=== PATIENT | male | born 1985 | race Caucasian/White ===

== ENCOUNTER 2022-07-04 08:10 | Outpatient (CLI) | payer OTHER, SELFPAY ==
--- NOTE | 2022-07-19 18:05 | WPDHOMESLEEP ---
Sleep Study - Home Unattended Date of Study: 07/04/22 Ordering Provider: Sebastian Martinez PA-C Interpreting Provider: Dalia Mckenna, DO Home Sleep Study Type: Watch PAT Height: 1.8 m Weight: 136.078 kg Body Mass Index: 41.8 Neck Circumference (inches): 20 [place]: 5 Reason for Sleep Study Snoring, daytime hypersomnia Sleep History The patient is a 37-year-old male with hypertension, hypothyroidism and current tobacco use that had a sleep study ordered by his primary care for evaluation of sleep apnea. The patient rarely awakens from sleep short of breath. He rarely awakens at night with heartburn, belching or cough. He constantly snores loudly enough that others complain. He frequently has trouble sleeping when he has a cold. He rarely wakes up gasping for air throughout the night. He rarely has breathing problems at night observed by himself or others. He occasionally sweats excessively at night. He denies having heart palpitations or irregular heartbeats during the night. He occasionally falls asleep during the day but never while driving. He denies sleep paralysis, cataplexy and hypnagogic / hypnopompic hallucinations. He denies having trouble at school or work due to sleepiness. He denies feeling afraid of going to sleep. He denies having nightmares. He occasionally remembers his dreams. He occasionally has thoughts racing through his mind. He denies feeling sad or depressed. He rarely has anxiety. He denies having muscular tension. He denies noticing parts of his body jerk. He denies kicking during the night. He denies having crawling and aching feelings in his legs and denies having leg pain during the night. He frequently grinds his teeth during sleep but never awakens with morning jaw pain. He is rarely bothered by pain during the day but never awakened by pain during the night. He occasionally wakes up feeling stiff in the morning. He occasionally wakes up with sore or achy muscles. He occasionally wakes with pain in the neck, spine or other joints. He goes to bed at 10:00 p.m. on weekdays and 11:00 p.m. on the weekends. It takes him 5-45 minutes to fall asleep. He is unsure how many times he wakes up throughout the night but if he does awaken he is able to fall back asleep within a few minutes. He wakes up at 4:30 a.m. on weekdays and 6:30 a.m. on the weekends. He typically gets 5-6 hours of sleep per night. He does not stay in bed after waking up in the morning. He currently lives with his parents. He does not consume any caffeinated beverages within 2 hours of bedtime. He does not engage in physical exercise before bedtime. He denies reading and watching television before falling asleep. He will take naps in the afternoon or the evening but they are not refreshing. He consumes 5 caffeinated beverages per day. He smokes less than 1 pack of cigarettes per day. He denies alcohol and recreational drug use. FORMERLY [facility] Past Medical History Medical History HTN (hypertension) Thyroid disease Surgical History Surgical History History of left knee surgery Family History Family History Father Hypertension Patient's father is in good health Mother Family history of gastrointestinal disorder Sibling Diabetes mellitus Other Family history of allergic disorder Social History Social History Smoking packs per day: 0.5 Smoking cigarettes per day: 10.0 Years smoked: 10 Smoking pack-years: 5.00 Smoking status: Current every day smoker Second hand tobacco smoke exposure: Yes Alcohol intake: current Substance use: unknown Lack of Transportation: No Lack of Food: Never True Current Housing: I Have Housing Concerned About Future Housing: No Difficul
[2022-07-19 18:16] VITALS: BMI 41.8
== END 2022-07-05 09:37 | disposition home or self-care (01) ==
LOC: ANHCSM 08:11
PROVIDERS: PCP Physician Assistant; Visit Provider Physician Assistant
DX: G47.10 Hypersomnia, unspecified (principal); G47.33 Obstructive sleep apnea (adult) (pediatric)
CPT/HCPCS: 95800

== ENCOUNTER 2022-12-12 08:21 | Outpatient (CLI) | payer OTHER, SELFPAY ==
--- NOTE | 2023-01-05 00:05 | WPDSLEEPSTUD ---
Sleep Study Date of Study: 12/12/22 Ordering Provider: MATT Mitchell Interpreting Physician: Maribell Powell MD Sleep Study Type: CPAP Titration Height: 1.8 m Weight: 138.346 kg Body Mass Index: 42.5 Neck Circumference (inches): 20 [place]: 5 Reason for Sleep Study * 07/04/2022 home sleep test using WatchPat with moderate obstructive sleep apnea, AHI 24.2 with desaturation to 74% now using APAP 5 -15 cm; overnight oximetry on APA shows 1 hour 27 minutes iwth saturaiotn below 88%. He presents to the sleep lab for CPAP titration and possible addition of O2. Sleep History Efrain Capps is a 37-year-old male with hypertension, hypothyroidism and current tobacco use who was diagnosed with CURTIS in July. He has been on APAP 5 - 15 cm with nocturnal hypoxemia noted on an overnight oximetry and APAP with 1 hour 27 minutes spent below 88%. The patient rarely awakens from sleep feeling short of breath. He rarely awakens at night with heartburn, belching or cough. He constantly snores loudly enough that others complain. He frequently has trouble sleeping when he has a cold. He rarely wakes up gasping for air. He rarely has breathing problems at night observed by others. He occasionally sweats excessively at night. He denies having heart palpitations or irregular heartbeats during the night. He occasionally falls asleep during the day but never while driving. He denies sleep paralysis, cataplexy and hypnagogic / hypnopompic hallucinations. He denies having trouble at school or work due to sleepiness. He is not afraid to go to sleep. He denies having nightmares. He occasionally remembers his dreams. He occasionally has thoughts racing through his mind. He denies feeling sad or depressed. He rarely has anxiety. He denies having muscular tension. He denies noticing parts of his body jerk. He denies kicking during the night. He denies having crawling and aching feelings in his legs and denies having leg pain during the night. He frequently grinds his teeth during sleep but never awakens with morning jaw pain. He is rarely bothered by pain during the day but never awakened by pain during the night. He occasionally wakes up feeling stiff in the morning. He occasionally wakes up with sore or achy muscles. He occasionally wakes with pain in the neck, spine or other joints. He goes to bed at 10:00 p.m. on weekdays and 11:00 p.m. on the weekends. It takes him 5-45 minutes to fall asleep. He is unsure how many times he wakes up throughout the night but if he does awaken he is able to return to sleep within a few minutes. He wakes up at 4:30 a.m. on weekdays and 6:30 a.m. on the weekends. He typically gets 5-6 hours of sleep per night. He does not stay in bed after waking up in the morning. He currently lives with his parents. He does not consume any caffeinated beverages within 2 hours of bedtime. He does not engage in physical exercise before bedtime. He denies reading and watching television before falling asleep. He will take naps in the afternoon or the evening but they are not refreshing. He consumes 5 caffeinated beverages per day. He smokes less than 1 pack of cigarettes per day. He denies alcohol and recreational substances. ON LICENSE OF [facility] Past Medical History Medical History HTN (hypertension) CURTIS (obstructive sleep apnea) Thyroid disease Surgical History Surgical History History of left knee surgery Family History Family History Father Hypertension Patient's father is in good health Mother Family history of gastrointestinal disorder Sibling Diabetes mellitus Other Family history of allergic disorder Social History Social History Smoking packs per day: 0.5 Smoking cigarettes per day: 1
[2023-01-05 18:24] VITALS: BMI 42.5
== END 2022-12-13 07:20 | disposition home or self-care (01) ==
LOC: ANHCSM 08:23
PROVIDERS: PCP Physician Assistant; Visit Provider Physician Assistant
DX: G47.33 Obstructive sleep apnea (adult) (pediatric) (principal)
CPT/HCPCS: 95811